=== PATIENT | male | born 1960 | race Caucasian/White ===

== ENCOUNTER 2020-02-17 10:57 | Emergency (ER) | payer OTHER ==
[~2020-02-17] VITALS: Ht 185.4 cm; Wt 111.1 kg
[2020-02-17 11:07] VITALS: Ht 185.4 cm; Wt 111.1 kg
[2020-02-17 14:36] VITALS: BP 136/84
== END 2020-02-17 14:25 | disposition home or self-care (01) ==
LOC: ED 10:57
DX: S93.401A Sprain of unspecified ligament of right ankle, initial encounter (principal); S90.122A Contusion of left lesser toe(s) without damage to nail, initial encounter; S09.8XXA Other specified injuries of head, initial encounter; M54.6 Pain in thoracic spine; M19.90 Unspecified osteoarthritis, unspecified site; E66.9 Obesity, unspecified; Z68.32 Body mass index [BMI] 32.0-32.9, adult; W01.0XXA Fall on same level from slipping, tripping and stumbling without subsequent striking against object, initial encounter; Y93.89 Activity, other specified; Y92.89 Other specified places as the place of occurrence of the external cause; Y99.8 Other external cause status
CPT/HCPCS: 72072; Q0092